=== PATIENT | male | born 1955 ===

== ENCOUNTER 2023-09-16 07:00 | Inpatient (IN) | payer OTHER ==
[2023-09-16] MEDS ORDERED: ATORVASTATIN CA20 MG PO (08:40)
[2023-09-16] MEDS ORDERED: FENOFIBRIC ACID 45 MG (08:42)
[2023-09-16] MEDS ORDERED: HYDROCHLORIDE (08:43)
[2023-09-16] MEDS ORDERED: METROPROLOL (08:43)
[2023-09-16 09:46] LABS: HEMATOCRIT 41.1 % (39.0-48.0); HEMOGLOBIN 14.1 g/dL (13-16.00); MEAN CELL VOLUME 87.2 fL (80.0-100.00); MEAN CORPUSCULAR HEMOGLOBIN 29.8 pg (27.00-32.0); MEAN CORPUSCULAR HGB CONC 34.2 g/dl (32.0-36.0); PLATELET COUNT 207 K/uL (150-450); RED BLOOD COUNT 4.72 M/uL (4.00-6.00); RED CELL DISTRIBUTION WIDTH 13.4 % (11.5-14.5)
[2023-09-16 09:52] LABS: URINE APPEARANCE Clear; URINE BILIRRUBIN Negative (NEGATIVE); URINE BLOOD Negative; URINE COLOR Yellow; URINE GLUCOSE Negative (NEGATIVE); URINE LEUKOCYTE Negative; URINE NITRATE Negative; URINE PROTEIN Negative (NEGATIVE); URINE UROBILINOGEN 0.2 E.U./dl
[2023-09-16 09:59] LABS: URINE BACTERIA 8.8 uL (0.0-1933); URINE EPITHELIAL CELLS 1.6 uL (0.0-38.8)
[2023-09-16 10:07] LABS: ALBUMIN 3.6 gm/dL (3.4-5.0); BILIRUBIN TOTAL 0.63 mg/dL (0.3-1.2); CALCIUM 9.3 mg/dL (8.5-10.1); CREATININE SERUM 0.97 mg/dL (0.70-1.30); GFR 77.2; GLOBULINA 2.7 G/DL (2.4-3.5); POTASSIUM 3.65 mEq/L (3.5-5.1); TOTAL PROTEIN 6.3 gm/dL (6.4-8.2)
[2023-09-16 10:09] LABS: INR 0.97; PARTIAL THROMBOPLASTIN TIME 26.5 SECONDS (22.0-34.0); PROTHROMBIN TIME 10.2 SECONDS (9.0-11.5)
[2023-09-16 10:20] LABS: URINE RBC 1.1 uL (0.0-20.8); URINE WBC 1.6 uL (0.0-23.2)
[2023-09-23] MEDS ORDERED: VANCOMYCIN HCL 1,000 MG VIAL ONE (07:55)
[2023-09-23] MEDS ORDERED: HYDROCHLOROTHIA25 MG (09:19)
[2023-09-23] MEDS ORDERED: METOPROLOL TART50 MG (09:19)
[2023-09-23] MEDS ORDERED: FENOFIBRIC ACID45 MG (09:19)
[2023-09-23] MEDS ORDERED: METHYLPREDNISOLONE ACETATE 80 MG/ML VIAL ONE (10:49)
[2023-09-23] MEDS ORDERED: KETOROLAC TROMETHAMINE 60 MG VIAL IM ONE ×2 (10:49→11:30)
[2023-09-23] MEDS ORDERED: TRANEXAMIC ACID 100MG/1ML (1000MG) AMPUL IV ONE ×3 (11:08→12:00)
[2023-09-23] MEDS ORDERED: MORPHINE SULFATE 4 MG/ML VIAL IV ONE (11:30)
[2023-09-23] MEDS ORDERED: METHYLPREDNISOLONE ACETATE 80 MG/ML VIAL IJ ONE (11:30)
[2023-09-23] MEDS ORDERED: VANCOMYCIN HCL 1,000 MG VIAL IV ONE (11:30)
[2023-09-23] MEDS ORDERED: ONDANSETRON HCL 2 MG/ML VIAL IV PRN (13:45)
[2023-09-23] MEDS ORDERED: SODIUM CHLORIDE 0.45 % 1,000 ML IV SCH (13:45)
[2023-09-23] MEDS ORDERED: MORPHINE SULFATE 4 MG/ML CARTRIDGE IV PRN (13:45)
[2023-09-23] MEDS ORDERED: MORPHINE SULFATE 2 MG/ML CARTRIDGE IV ONE (13:45)
[2023-09-23 15:28] LABS: HEMOGLOBIN 13.6 g/dL (13-16.00); RED BLOOD COUNT 4.61 M/uL (4.00-6.00)
[2023-09-23] MEDS ORDERED: VANCOMYCIN HCL 1,000 MG in 0.9 % SODIUM CHLORIDE 250 ML IV SCH (21:00)
[2023-09-24 06:55] LABS: HEMOGLOBIN 13.2 g/dL (13-16.00); MEAN CELL VOLUME 87.8 fL (80.0-100.00); MEAN CORPUSCULAR HEMOGLOBIN 29.6 pg (27.00-32.0); MEAN CORPUSCULAR HGB CONC 33.7 g/dl (32.0-36.0); PLATELET COUNT 221 K/uL (150-450); RED BLOOD COUNT 4.44 M/uL (4.00-6.00); RED CELL DISTRIBUTION WIDTH 12.9 % (11.5-14.5)
[2023-09-24] MEDS ORDERED: OxyCODONE HCL/APAP UD (PERCOCET) PO PRN (08:30)
[2023-09-24] MEDS ORDERED: OxyCODONE HCL ER 10MG TAB (OxyCONTIN) PO SCH (09:00)
[2023-09-24] MEDS ORDERED: HYDROCHLOROTHIAZIDE 25 MG TABLET PO SCH (09:00)
[2023-09-24] MEDS ORDERED: IRON FUM,PS/FOLIC/BCOMP,C NO.9 1 CAP CAPSULE PO SCH (09:00)
[2023-09-24] MEDS ORDERED: ATORVASTATIN CALCIUM 20 MG TABLET PO SCH (09:00)
[2023-09-24] MEDS ORDERED: BACITRACIN 28.35 GM OINT.TUBE TOP SCH (09:00)
[2023-09-24] MEDS ORDERED: SENNA/DOCUSATE SODIUM 1 TAB TABLET PO SCH (09:00)
[2023-09-24] MEDS ORDERED: METOPROLOL TARTRATE 50 MG TABLET PO SCH (09:00)
[2023-09-24] MEDS ORDERED: RIVAROXABAN 10 MG TAB PO SCH (09:00)
[2023-09-25 07:00] LABS: HEMATOCRIT 37.5 % (39.0-48.0); HEMOGLOBIN 12.9 g/dL (13-16.00); MEAN CELL VOLUME 88.7 fL (80.0-100.00); MEAN CORPUSCULAR HEMOGLOBIN 30.5 pg (27.00-32.0); MEAN CORPUSCULAR HGB CONC 34.3 g/dl (32.0-36.0); PLATELET COUNT 216 K/uL (150-450); RED BLOOD COUNT 4.23 M/uL (4.00-6.00); RED CELL DISTRIBUTION WIDTH 13.1 % (11.5-14.5)
[2023-09-25] MEDS ORDERED: BACTRIM DS TAB1 EACH PO (08:20)
[2023-09-25] MEDS ORDERED: OXYC1TAB9 PO (08:20)
[2023-09-25] MEDS ORDERED: INTEGRA PLUS C1 EACH PO (08:20)
[2023-09-25] MEDS ORDERED: XARELTO10 MG PO (08:20)
== END 2023-09-25 13:49 | DRG 470 ==
LOC: O/R 09-23 05:08 → SURH 09-23 07:00
PROVIDERS: ADMIT Orthopaedic Surgery Sports Medicine; ATTEND Orthopaedic Surgery Sports Medicine
PROC: 0SRD0J9 Replacement of Left Knee Joint with Synthetic Substitute, Cemented, Open Approach (ICD-10-PCS; principal; 2023-09-23 07:00)
DX: M17.12 Unilateral primary osteoarthritis, left knee (principal); I10 Essential (primary) hypertension; Z20.822 Contact with and (suspected) exposure to COVID-19